=== PATIENT | female | born 1995 | race African-American/Black ===

== ENCOUNTER 2016-10-12 18:54 | Emergency (ER) | payer SELFPAY ==
[2016-10-12 18:56] VITALS: BP 149/77; PULSE 124; RESP 18; TEMP 98.2; O2SAT 99
--- NOTE | 2016-10-12 19:08 | PD ---
Physical Exam Time Seen by Provider: 19:08 Narrative 21 y/o female presents for evaluation of one day history of palpitations. Vital signs reviewed Seen at triage desk. awaiting bed placement. Data Data Last Documented VS Vital Signs Date Time Temp Pulse Resp B/P Pulse Ox O2 Delivery O2 Flow Rate FiO2 10/12/16 18:56 98.2 124 18 149/77 99 MDM Medical Record Reviewed: Yes Supervised Visit with SHAR: Pablo Guzman October 12, 2016 19:08
[2016-10-12] MEDS ORDERED: SODIUM CHLOR 0.9% 1000 ML INJ 1,000 ML IV ONE ×2 (19:45→20:45)
[2016-10-12] MEDS ORDERED: SODIUM CHLORIDE 0.9% FLUSH 10 ML FLUSH IVF PRN (19:45)
[2016-10-12 19:47] VITALS: BP_SYST 133; BP_SYST 149; BP_DIAS 66; BP_DIAS 73; RESP 16; O2SAT 99
--- NOTE | 2016-10-12 19:52 | PD ---
HPI Chief Complaint: Cardiac Complaint Time Seen by Provider: 19:30 Travel History International Travel<30 days: No Contact w/Intl Traveler<30days: No Traveled to known affect area: No History of Present Illness HPI Patient comes in complaining of palpitations that began around 1450 today. Patient denies any trauma, chest pain, shortness of breath, nausea, vomiting, , fevers, IV drug use, loss or change in bowel or bladder, excessive caffeine intake, or previous episodes like this. Patient denies doing anything for this prior to coming to the emergency department. Patient does report she is going back to [place] tomorrow for the summer. [facility] Past Medical History Medical History: Denies Significant Hx Diminished Hearing: No Immunizations Current: Yes Tetanus Vaccination: Unknown Influenza Vaccination: No ?: Not Past Surgical History Surgical History: No Previous Surgery Social History Alcohol Use: No Tobacco Use: No Substance Use: No Allergies-Medications (Allergen,Severity, Reaction): Coded Allergies: No Known Allergies (Unverified , 10/12/16) Reported Meds & Prescriptions Reported Meds & Active Scripts Active No Active Prescriptions or Reported Medications Review of Systems Except as stated in HPI: all other systems reviewed are Neg Physical Exam Narrative GENERAL: Well-developed, well nourished, in no acute distress, and non-ill appearing. SKIN: Focused skin assessment warm and dry. HEAD: Atraumatic. Normocephalic. EYES: Pupils equal and round. EOMI. No scleral icterus. No injection or drainage. ENT: No nasal bleeding or discharge. Mucous membranes pink and moist. NECK: Trachea midline. No JVD. Supple. No nuclear rigidity. CARDIOVASCULAR: Tachycardia rate and rhythm. No murmur appreciated. RESPIRATORY: No accessory muscle use. No respiratory distress. Clear to auscultation. Breath sounds equal bilaterally. MUSCULOSKELETAL: No obvious deformities. No clubbing. No cyanosis. No edema. Full range of motion. NEUROLOGICAL: Awake and alert. No obvious cranial nerve deficits. Motor grossly within normal limits. Normal speech. PSYCHIATRIC: Appropriate mood and affect; insight and judgment normal. Data Data Last Documented VS Vital Signs Date Time Temp Pulse Resp B/P Pulse Ox O2 Delivery O2 Flow Rate FiO2 10/12/16 19:47 16 99 Room Air 10/12/16 19:47 133/66 149/73 10/12/16 19:19 124 10/12/16 18:56 98.2 Orders Electrocardiogram (10/12/16 19:31) Basic Metabolic Panel (Bmp) (10/12/16 19:31) Ckmb (Isoenzyme) Profile (10/12/16 19:31) Complete Blood Count With Diff (10/12/16 19:31) D-Dimer (10/12/16 19:31) Magnesium (Mg) (10/12/16 19:31) Prothrombin Time / Inr (Pt) (10/12/16 19:31) Act Partial Throm Time (Ptt) (10/12/16 19:31) Troponin I (10/12/16 19:31) Chest, Single Ap (10/12/16 19:31) Ecg Monitoring (10/12/16:31) Bilateral Bp Monitoring (10/12/16:31) Iv Access Insert/Monitor (10/12/16:31) Oximetry (10/12/16 19:31) Oxygen Administration (10/12/16 19:31) Sodium [place] 0.9% Flush (Ns Flush) (10/12/16 19:45) Thyroid Stimulating Hormone (10/12/16 19:31) Urinalysis - C+S If Indicated (10/12/16 19:31) Ed Urine Pregnancytest Poc (10/12/16 19:31) Sodium Chlor 0.9% 1000 Ml Inj (Ns 1000 M (10/12/16 19:45) Sodium Chlor 0.9% 1000 Ml Inj (Ns 1000 M (10/12/16 20:45) CKMB (10/12/16 19:45) CKMB% (10/12/16 19:45) Lorazepam Inj (Ativan Inj) (10/12/16 21:30) Labs Laboratory Tests Test 10/12/16 10/12/16 19:45 20:45 White Blood Count 9.4 TH/MM3 Red Blood Count 4.16 MIL/MM3 Hemoglobin 10.4 GM/DL Hematocrit 31.5 % Mean Corpuscular Volume 75.8 FL Mean Corpuscular Hemoglobin 25.0 PG Mean Corpuscular Hemoglobin 33.0 % Concent Red Cell Distribution Width 15.5 % Platelet Count 458 TH/MM3 Mean Platelet Volume 7.8 FL Neutrophils (%) (Auto) 83.5 % Lymphocytes (%) (Auto) 13.1 % Monocytes (%) (Auto) 2.6 % Eosinophils (%) (Auto) 0.1 % Basophils (%) (Auto) 0.7 % Neutrophils # (Auto) 7.9 TH/MM3 Lymphocytes # (Auto) 1.2 TH/MM3 Monocytes # (Auto) 0.2 TH/MM3 Eosinophils # (Auto) 0.0 TH/MM3 Basophils # (Auto) 0.1 TH/MM3 CBC Comment DIFF FINAL Differential Comment Prothrombin Time 11.4 SEC Prothromb Time International 1.0 RATIO Ratio Activated Partial 26.6 SEC Thromboplast Time D-Dimer Quantitative (PE/DVT) 0.26 MG/L FEU Sodium Level 140 MEQ/L Potassium Level 3.5 MEQ/L [place] Level 104 MEQ/L Carbon Dioxide Level 22.5 MEQ/L Anion Gap 14 MEQ/L Blood Urea Nitrogen 15 MG/DL Creatinine 0.90 MG/DL Estimat Glomerular Filtration 79 ML/MIN Rate Random Glucose 102 MG/DL Calcium Level 8.8 MG/DL Magnesium Level 2.3 MG/DL Total Creatine Kinase 191 U/L Creatine Kinase MB 0.8 NG/ML Troponin I LESS THAN 0.02 NG/ML Thyroid Stimulating Hormone 1.210 uIU/ML 3rd Gen Urine Color YELLOW Urine Turbidity CLEAR Urine pH 6.5 Urine Specific [place] 1.026 Urine Protein TRACE mg/dL Urine Glucose (UA) NEG mg/dL Urine Ketones 80 mg/dL Urine Occult Blood NEG Urine Nitrite NEG Urine Bilirubin NEG Urine Urobilinogen LESS THAN 2.0 MG/DL Urine Leukocyte Esterase SMALL Urine RBC 1 /hpf Urine WBC 5 /hpf Urine Squamous Epithelial 3 /hpf Cells Urine Mucus MOD /lpf Microscopic Urinalysis Comment CULT NOT INDICATED MDM Medical Decision Making Medical Screen Exam Complete: Yes Emergency Medical Condition: Yes Interpretation(s) EKG reviewed by Dr. Goel shows sinus tachycardia with ventricular rate of 116. No STEMI. Differential Diagnosis PE, arrhythmia, electrolyte abnormality, thyroid storm, UTI, , other Narrative Course 2114 patient reports improvement of symptoms. Though patient remains slightly tachycardic. Patient does have Ativan reevaluated and likely discharge home. The patient presented with nonspecific palpitations. The patient denied any chest pains nor discomfort. The patient also denied any syncope episode or near syncope symptomatology. The patient denied any significant dyspnea. The patient denied any recent stimulants such as caffeine, energy drinks, cold and flu formulas, diet or work out stimulant medications. The patient also denied drugs , alcohol or tobacco. The patient denied any other hyperthyroid symptomatology such as neat intolerance, nervousness , insomnia, increased bowel movements, light or absent menstrual periods, fatigue, weight loss, muscle weakness, hair loss. The patient has no significant comorbidities. The patient was found to be in benign sinus tachycardic rhythm and in no acute distress. I discussed with the patient, suspect benign palpitations and most often no dangerous rhythm disturbance is present, but possible other etiologies including arrhythmias not found on presentation (such as PACs/PVCs, SVT, Afib/Aflutter or other arrhythmias), underlying medical conditions (thyroid, etc) and even periods of stress and anxiety or changes in hormones may exist. The patient was instructed to follow up with primary care physician for evaluation. The patient was also instructed to return as needed or instructed or if symptoms worsen, persists or increase in frequency or associated with chest pains or discomfort or pass out or feel like might pass out. The patient agrees with plan. Patient in no obvious distress upon re-evaluation. All pertinent laboratory/ Radiology result(s) discussed with patient including anemia noted on blood work. Patient reports improvement of symptoms and feeling much better. Discussed patient with Dr. Goel prior discharge, who is in agreement with plan of care and disposition. Any questions/concerns in reference to patient diagnosis/condition discussed and clarified prior to patient's discharge. Reinforced sheer importance of close follow up with patient's primary physician or primary care clinic. Instructed patient to return to ED immediately, if symptoms return/worsen. Pt showed understanding of above instructions. Further instructions and recommendations were detailed in discharge paperwork. Pt ambulated without difficulty out of ED at discharge. Diagnosis Primary Impression: Palpitations Patient Instructions: General Instructions Additional Instructions: Follow-up with your primary care physician and/or barrel cap setter this week for evaluation. Drink plenty of non-caffeinated and nonalcoholic fluids. Return to the emergency department if symptoms get worse. Scripts No Active Prescriptions or Reported Meds Disposition: 01 DISCHARGE HOME Condition: Stable Logan Childress October 12, 2016 19:52
--- NOTE | 2016-10-12 20:21 | RADRPT ---
EXAM DATE/TIME: 10/12/2016 19:47 [facility] COMPARISON: No previous studies available for comparison. INDICATIONS : Palpitations. MEDICAL HISTORY : None. SURGICAL HISTORY : None. ENCOUNTER: Initial ACUITY: 1 day PAIN SCORE: 0/10 LOCATION: Bilateral chest FINDINGS: A single view of the chest demonstrates the lungs to be symmetrically aerated without evidence of mas s, infiltrate or effusion. The cardiomediastinal contours are unremarkable. Osseous structures are intact. CONCLUSION: No acute disease. Thomas Pappas MD on October 12, 2016 at 20:20 Board Certified Radiologist. This report was verified electronically.
[2016-10-12 20:23] LABS: AUTOMATED NEUTROPHIL # 7.9 TH/MM3 (1.8-7.7); BASOPHIL # 0.1 TH/MM3 (0-0.2); BASOPHIL % 0.7 % (0.0-2.0); EOSINOPHIL % 0.1 % (0.0-4.0); HEMATOCRIT 31.5 % (35.0-46.0); HEMO FLAGS DIFF FINAL; LYMPH % 13.1 % (9.0-44.0); LYMPHOCYTE # 1.2 TH/MM3 (1.0-4.8); MEAN CELL VOLUME 75.8 FL (80.0-100.0); MONO % 2.6 % (0.0-8.0); NEUT % 83.5 % (16.0-70.0); PLATELET COUNT 458 TH/MM3 (150-450); RED BLOOD COUNT 4.16 MIL/MM3 (4.00-5.30); RED CELL DISTRIBUTION WIDTH 15.5 % (11.6-17.2); WHITE BLOOD COUNT 9.4 TH/MM3 (4.0-11.0)
[2016-10-12 20:37] LABS: ANION GAP 14 MEQ/L (5-15); BICARBONATE 22.5 MEQ/L (21.0-32.0); BLOOD UREA NITROGEN 15 MG/DL (7-18); CHLORIDE 104 MEQ/L (98-107); GLOMERULAR FILTRATION RATE 79 ML/MIN (>89); MAGNESIUM 2.3 MG/DL (1.5-2.5); POTASSIUM 3.5 MEQ/L (3.5-5.1); SODIUM (NA) 140 MEQ/L (136-145)
[2016-10-12 20:48] LABS: CREATINE KINASE 191 U/L (26-192)
[2016-10-12 21:00] LABS: CKMB 0.8 NG/ML (0.5-3.6)
[2016-10-12 21:03] LABS: PROTHROMBIN TIME - PATIENT 11.4 SEC (9.8-11.6)
[2016-10-12 21:05] LABS: APTT (PATIENT) 26.6 SEC (24.3-30.1)
[2016-10-12 21:12] LABS: BLOOD, URINE NEG (NEG); COMMENT (UR) CULT NOT INDICATED; CULTURE IF INDICATED CULT NOT INDICATED; GLUCOSE,URINE NEG (NEG); KETONE, URINE 80 mg/dL (NEG); MUCUS URINE MOD /lpf (OCC); NITRITE,URINE NEG (NEG); PH, URINE 6.5 (5.0-8.5); SQUAMOUS EPITHELIAL CELL URINE 3 /hpf (0-5); URINE COLOR YELLOW (YELLW/STRAW)
[2016-10-12] MEDS ORDERED: LORazepam 2 MG/ML VIAL IV PUSH ONE (21:30)
--- NOTE | 2016-10-13 08:46 | EKG ---
Date Performed: 10/12/2016 Time Performed: 19:27:01 PTAGE: 21 years EKG: SINUS TACHYCARDIA NONSPECIFIC ST & T-WAVE ABNORMALITY ABNORMAL ECG NO PREVIOUS TRACING DOCTOR: Bairon Dixon Interpretating Date/Time 10/13/2016 08:45:10
== END 2016-10-12 22:14 | disposition home or self-care (01) ==
LOC: NEPE 18:54
DX: R00.2 Palpitations (principal); R00.0 Tachycardia, unspecified
CPT/HCPCS: 71010; 80048; 81001; 82550; 82552; 83735; 84443; 84484; 84703; 85025; 85379; 85610; 85730; 93005; 96374; 99285; J2060; J7030

== ENCOUNTER 2017-01-24 10:35 | Emergency (ER) | payer SELFPAY ==
[~2017-01-24] VITALS: Ht 172.7 cm; Wt 70.0 kg
[2017-01-24 10:36] VITALS: BP 129/77; PULSE 95; RESP 20; TEMP 99.2; O2SAT 99
--- NOTE | 2017-01-24 12:11 | PD ---
HPI . shortness of breath last night Chief Complaint: Respiratory Symptoms Time Seen by Provider: 12:10 Travel History International Travel<30 days: No Contact w/Intl Traveler<30days: No Traveled to known affect area: No History of Present Illness HPI 21-year-old female with here with complaints of shortness of breath yesterday. Patient tells me that she has some shortness of breath yesterday and it scared her. She decided to come to the emergency room today for evaluation. At this present time she denies any shortness breath, chest pain, nausea, vomiting, diaphoresis or abdominal pain. She is on control pills, but denies smoking. She denies any cold or flu-like symptoms. PFSH Past Medical History Diminished Hearing: No Immunizations Current: Yes ?: Not Social History Alcohol Use: No Tobacco Use: No Substance Use: No Allergies-Medications (Allergen,Severity, Reaction): Coded Allergies: No Known Allergies (Unverified , 10/12/16) Reported Meds & Prescriptions Reported Meds & Active Scripts Active No Active Prescriptions or Reported Medications Review of Systems General / Constitutional: No: Fever Eyes: No: Visual changes HENT: No: Headaches Cardiovascular: No: Chest Pain or Discomfort Respiratory: Positive: Shortness of Breath Gastrointestinal: No: Abdominal Pain Genitourinary: No: Dysuria Musculoskeletal: No: Pain Skin: No Rash Neurologic: No: Weakness Psychiatric: No: Depression Endocrine: No: Polydipsia Hematologic/Lymphatic: No: Easy Bruising Physical Exam Narrative GENERAL: AAO x 3, no acute distress, Well-nourished, well-developed patient. SKIN: Warm and dry. No visible rashes or bruising. HEAD: Normocephalic and atraumatic. EYES: No scleral icterus. No injection or drainage. EOM intact, PERRLA ENT: No nasal drainage noted. Mucous membranes pink. Airway patent. NECK: Supple, trachea midline. No JVD. CARDIOVASCULAR: Regular rate and rhythm without murmurs, gallops, or rubs. RESPIRATORY: Breath sounds equal bilaterally. No accessory muscle use. No rhonchi or rales. GASTROINTESTINAL: Abdomen soft, non-tender, nondistended. EXTREMITIES: No cyanosis or edema. BACK: No obvious deformity. NEURO: CN II-12 intact, manager store strength normal b/l, UE and LE 5/5, no focal deficits PSYCH: AAO x 3, normal affect. Data Data Last Documented VS Vital Signs Date Time Temp Pulse Resp B/P Pulse Ox O2 Delivery O2 Flow Rate FiO2 01/24/17 12:19 18 Room Air 01/24/17 10:36 99.2 95 129/77 99 Orders Cbc No Diff, Includes Plts (01/24/17 12:13) Basic Metabolic Panel (Bmp) (01/24/17 12:13) D-Dimer (01/24/17 12:13) Labs Laboratory Tests Test 01/24/17 12:25 White Blood Count 6.0 TH/MM3 Red Blood Count 4.45 MIL/MM3 Hemoglobin 11.6 GM/DL Hematocrit 34.5 % Mean Corpuscular Volume 77.6 FL Mean Corpuscular Hemoglobin 26.0 PG Mean Corpuscular Hemoglobin 33.5 % Concent Red Cell Distribution Width 13.4 % Platelet Count 326 TH/MM3 Mean Platelet Volume 7.3 FL D-Dimer Quantitative (PE/DVT) LESS THAN 0.19 MG/L FEU Sodium Level 139 MEQ/L Potassium Level 3.7 MEQ/L [place] Level 107 MEQ/L Carbon Dioxide Level 22.1 MEQ/L Anion Gap 10 MEQ/L Blood Urea Nitrogen 15 MG/DL Creatinine 0.91 MG/DL Estimat Glomerular Filtration 94 ML/MIN Rate Random Glucose 86 MG/DL Calcium Level 8.7 MG/DL MDM Medical Decision Making Medical Screen Exam Complete: Yes Emergency Medical Condition: Yes Medical Record Reviewed: Yes Differential Diagnosis Anxiety, allergic rhinitis, asthma, pulmonary emboli Narrative Course 21-year-old female here with complaints of shortness of breath yesterday. Examination today is unremarkable. Labs including a d-dimer has been ordered. Laboratory Tests Test 01/24/17 12:25 White Blood Count 6.0 TH/MM3 Red Blood Count 4.45 MIL/MM3 Hemoglobin 11.6 GM/DL Hematocrit 34.5 % Mean Corpuscular Volume 77.6 FL Mean Corpuscular Hemoglobin 26.0 PG Mean Corpuscular Hemoglobin 33.5 % Concent Red Cell Distribution Width 13.4 % Platelet Count 326 TH/MM3 Mean Platelet Volume 7.3 FL D-Dimer Quantitative (PE/DVT) LESS THAN 0.19 MG/L FEU Sodium Level 139 MEQ/L Potassium Level 3.7 MEQ/L [place] Level 107 MEQ/L Carbon Dioxide Level 22.1 MEQ/L Anion Gap 10 MEQ/L Blood Urea Nitrogen 15 MG/DL Creatinine 0.91 MG/DL Estimat Glomerular Filtration 94 ML/MIN Rate Random Glucose 86 MG/DL Calcium Level 8.7 MG/DL All labs reviewed. I discussed with patient. I offered reassurance. I advised follow-up with her primary care provider or her school clinic. Case discussed with my attending Dr. Tejada. He was in agreement with the recommendations. Patient verbalized understanding of instructions, questions were answered, and thanked me for their care. I advised them if their condition worsens, please return to the nearest emergency room for further care. Diagnosis Primary Impression: SOB (shortness of breath) Additional Instructions: Please return to emergency department if your symptoms return or worsen. Follow up with your primary care provider. Scripts No Active Prescriptions or Reported Meds Disposition: 01 DISCHARGE HOME Condition: Stable Brook Addison Jan 24, 2017 12:11
[2017-01-24 12:44] LABS: HEMATOCRIT 34.5 % (35.0-46.0); MEAN CELL VOLUME 77.6 FL (80.0-100.0); MEAN CORPUSCULAR HGB CONC 33.5 % (32.0-36.0); PLATELET COUNT 326 TH/MM3 (150-450); RED BLOOD COUNT 4.45 MIL/MM3 (4.00-5.30); RED CELL DISTRIBUTION WIDTH 13.4 % (11.6-17.2); REVIEW FLAG FINAL
[2017-01-24 13:01] LABS: BICARBONATE 22.1 MEQ/L (21.0-32.0); POTASSIUM 3.7 MEQ/L (3.5-5.1)
== END 2017-01-24 13:42 | disposition home or self-care (01) ==
LOC: NEPD 10:35
DX: R06.02 Shortness of breath (principal)
CPT/HCPCS: 80048; 85027; 85379; 99283